=== PATIENT | female | born 1940 | race Caucasian/White ===

== ENCOUNTER 2019-12-19 14:58 | Outpatient (CLI) | payer MEDICARE | END 2019-12-19 23:59 | disposition critical access hospital (66) | LOC: EMS 14:58 | PROVIDERS: ATTEND Surgery | DX: M79.662 Pain in left lower leg (principal); S00.211A Abrasion of right eyelid and periocular area, initial encounter; W10.1XXA Fall (on)(from) sidewalk curb, initial encounter; Y92.480 Sidewalk as the place of occurrence of the external cause | CPT/HCPCS: A0425; A0429 ==

== ENCOUNTER 2019-12-19 15:06 | Emergency (ER) | payer MEDICARE ==
--- NOTE | 2019-12-19 15:19 | ED Physician Documentation ---
PD HPI UPPER EXT INJURY - Stated complaint Stated Complaint: ARM PAIN/ FALL - Chief complaint Chief Complaint: Ext Problem - History obtained from History obtained from: Patient - History of Present Illness Location: Left, Shoulder Type of injury: Fall Where injury occurred: Street (stepped up to go over a curb and foot struck the curb instead and she fell forward to the right more, but has pain left shoulder. Denies other areas of pain.) Timing - onset: Today Timing - details: Abrupt onset, Still present Worsened by: Moving Associated symptoms: No: Weakness, Numbness Contributing factors: No: Anticoagulated Similar symptoms before: Has not had sx before Review of Systems Skin: denies: Abrasion (s), Laceration (s) Musculoskeletal: denies: Neck pain, Back pain Neurologic: reports: Head injury (she felt she struck forehead as she fell.). denies: Focal weakness, Numbness, Confused, Altered mental status, Headache, LOC PD PAST MEDICAL HISTORY - Past Medical History Neuro: None Musculoskeletal: None - Present Medications Home Medications: Ambulatory Orders Medication Instructions Recorded Confirmed Naproxen 500 mg PO BID #20 tablet 12/19/19 Oxycodone HCl/Acetaminophen 1 each PO Q6H PRN #20 tablet 12/19/19 [Percocet 5-325 mg Tablet] - Allergies Allergies/Adverse Reactions: Allergies Allergy/AdvReac Type Severity Reaction Status Date / Time Sulfa (Sulfonamide Allergy Nausea Verified 12/19/19 15:13 Antibiotics) PD ED PE NORMAL - Vitals Vital signs reviewed: Yes - General General: Alert and oriented X 3, Well developed/nourished, Other (appears uncomfortable with guarded ROM of the left shoulder. ) - HEENT HEENT: Atraumatic (mild abrasion left forehead without deformity) - Neck Neck: Supple, no meningeal sign, No bony TTP, No adenopathy - Cardiac Cardiac: RRR, No murmur - Respiratory Respiratory: Clear bilaterally, Other (no chestwall tenderness) - Abdomen Abdomen: Soft, Non tender - Derm Derm: Normal color, Warm and dry - Extremities Extremities: Other (left shoulder with tenderness at proximal humerus. Elbow and wrist not tender. ) - Neuro Neuro: Alert and oriented X 3, No motor deficit, No sensory deficit, Normal speech Eye Opening: Spontaneous Motor: Obeys Commands Verbal: Oriented GCS Score: 15 Results - Vitals Vitals: Vital Signs - 24 hr 12/19/19 12/19/19 12/19/19 15:11 17:34 17:53 Temperature 36.9 C Heart Rate 65 82 79 Respiratory 18 16 16 Rate Blood Pressure 139/61 H 142/67 H 159/60 H O2 Saturation 96 95 96 Oxygen O2 Source Room air - Rads (name of study) left shoulder Radiology: Prelim report reviewed (humeral head and greater tuberosity fractures. ), See rad report PD MEDICAL DECISION MAKING - ED course Complexity details: reviewed results (proximal humerus fracture), re-evaluated patient, considered differential, d/w patient Departure - Departure Disposition: 01 Home, Self Care Clinical Impression: Fall from slip, trip, or stumble Qualifiers: Encounter type: initial encounter Qualified Code(s): W01.0XXA - Fall on same level from slipping, tripping and stumbling without subsequent striking against object, initial encounter Fx humeral neck Qualifiers: Encounter type: initial encounter Fracture type: closed Laterality: left Qualified Code(s): S42.212A - Unspecified displaced fracture of surgical neck of left humerus, initial encounter for closed fracture Forehead abrasion Qualifiers: Encounter type: initial encounter Qualified Code(s): S00.81XA - Abrasion of other part of head, initial encounter Condition: Stable Record reviewed to determine appropriate education?: Yes Instructions: ED Fx Shoulder Prescriptions: Naproxen 500 mg PO BID #20 tablet Oxycodone HCl/Acetaminophen [Percocet 5-325 mg Tablet] 1 each PO Q6H PRN #20 tablet PRN Reason: pain Comments: Sling for the arm and shoulder to reduce motion and allow comfort. Sleep and rest in the best position of comfort. Sometimes at in a recliner rather than flat in bed but see how you feel. Anti-inflammatories such as naproxen 2-3 times a day for the next 7 to 10 days. Add Tylenol or oxycodone as needed for pain. Follow-up with orthopedics next week, call for an appointment. I talked with [facility] and they did not have an orthopedist on their staff in the [facility] so said to go with a local orthopedic group. The local group in [place] is the orthopedic clinic at [facility] and their phone number is [phone]. Call them to set up an up follow-up appointment. Discharge Date/Time: 12/19/19 17:55
[2019-12-19] MEDS ORDERED: ONDANSETRON ODT 4 MG TABLET TL STA (15:32)
[2019-12-19] MEDS ORDERED: KETOROLAC 30 MG/ML VIAL IM STA (15:32)
[2019-12-19] MEDS ORDERED: HYDROmorphone 2 MG/ML VIAL IM STA (15:32)
--- NOTE | 2019-12-19 16:01 | XRAY Report ---
Reason: fall with left prox humerus pain Procedure Date: 12/19/2019 Accession Number: [id number] / [id number] Procedure: XR - Humerus LT CPT Code: Final Report FULL RESULT: EXAM: LEFT HUMERUS RADIOGRAPHY EXAM DATE: 12/19/2019 03:57 PM. CLINICAL HISTORY: Fall with left prox humerus pain. COMPARISON: None. TECHNIQUE: 2 views. FINDINGS: Bones: Comminuted humeral head and neck fracture with lateral displacement of the greater tuberosity. Joints: AC joint hypertrophy. Glenohumeral osteophyte. Humeral head is inferiorly positioned which may be due to hematoma. Soft Tissues: Normal. No soft tissue swelling. IMPRESSION: Comminuted humeral head and neck fracture RADIA
[2019-12-19 17:54] VITALS: BP 159/60
== END 2019-12-19 17:55 | disposition home or self-care (01) ==
LOC: ED 15:06
DX: S42.212A Unspecified displaced fracture of surgical neck of left humerus, initial encounter for closed fracture (principal); S00.81XA Abrasion of other part of head, initial encounter; W01.0XXA Fall on same level from slipping, tripping and stumbling without subsequent striking against object, initial encounter; Y93.01 Activity, walking, marching and hiking; Y92.480 Sidewalk as the place of occurrence of the external cause
CPT/HCPCS: 73060; 96372; 99283; 99284; J1170; Q0162